=== PATIENT | male | born 1960 | race Caucasian/White ===

== ENCOUNTER → 2018-04-11 08:31 | Outpatient (CLI) | payer OTHER, SELFPAY ==
[2014-02-21 20:37] VITALS: BMI 26.3
[2018-04-11 12:51] LABS: Absolute Lymphocyte Count 1.08 X10^3/ul (0.83-4.51); Absolute Neutrophil Count 1.7 X10^3/uL (2.0-7.7); Basophil# 0.04 X10^3/uL; Basophil% 1.2 % (0-1); Eosinophils% 8.7 % (0-5); Hematocrit 48.1 % (40-54); Lymphocyte # 1.08 X10^3/ul (4.0); Lymphocyte % 31.5 % (19-41); Mean Corp Hgb Conc 33.3 g/gl (32-36); Mean Corpuscular Hgb 32.1 pg (27.0-32.0); Mean Corpuscular Volume 96.6 fL (80-94); Mean Platelet Vol. 12.2 fl (6.2-12.0); Monocyte# 0.29 X10^3/uL; Monocyte% 8.5 % (0-10); Neutrophil # 1.72 X10^3/uL (2.7-7.7); Neutrophil % 50.1 % (47-70); Platelet Count 123 K/mm3 (150-450); RBC Distribution Width SD 45.1 fl (35.1-43.9); Red Blood Count 4.98 M/mm3 (4.6-6.2); White Blood Count 3.4 K/mm3 (4.4-11.0)
[2018-04-11 12:53] LABS: POSITIVE COUNT NO; POSITIVE DIFFERENTIAL NO; POSITIVE MORPHOLOGY NO
[2018-04-11 13:31] LABS: ALB/GLOB Ratio 1.3 RATIO (0.9-2.4); AST(SGOT) 10 U/L (15-37); Alanine Aminotransfer ALT/SGPT 22 U/L (16-61); Albumin, Serum 3.9 g/dL (3.2-5.0); Alkaline Phosphatase 64 U/L (45-117); Anion Gap 10 (5-15); BUN 24 mg/dL (7-18); BUN/Creat Ratio 22.9 RATIO (10-20); Calcium,Total 8.9 mg/dL (8.5-10.1); Chloride 108 mmol/L (98-107); Cholesterol 183 mg/dL (200); Creatinine, Serum 1.05 mg/dL (0.70-1.30); EST Glomerular Filtration Rate 77 mL/min (>60); Est Glom Filt Rate - Afr Amer 93 mL/min (>60); Globulin 2.9 g/dL (2.2-4.2); Glucose 102 mg/dL (74-106); High Density Lipoprotein 52 mg/dL; PSA,Total - Annual Screen 0.81 ng/mL (0.00-4.00); Potassium 4.3 mmol/L (3.5-5.1); Protein, Total 6.8 g/dL (6.4-8.2); Sodium Level 143 mmol/L (136-145); Thyroid Stim Hormone (TSH) 0.21 uIU/mL (0.358-3.74); Triglycerides 92 mg/dL; Very Low Density Lipoprotein 18 mg/dL (5-40)
== END ==
PROVIDERS: Family Provider Family Medicine; PCP Family Medicine; Visit Provider Family Medicine
DX: Z00.01 Encounter for general adult medical examination with abnormal findings (principal); E03.9 Hypothyroidism, unspecified; E78.5 Hyperlipidemia, unspecified; Z12.5 Encounter for screening for malignant neoplasm of prostate
CPT/HCPCS: 36415; 80053; 80061; 84153; 84443; 85025; G0103

== ENCOUNTER → 2018-04-21 10:46 | Outpatient (CLI) | payer OTHER, SELFPAY ==
[2014-02-21 20:37] VITALS: BMI 26.3
[2018-04-21 12:11] LABS: Absolute Lymphocyte Count 1.26 X10^3/ul (0.83-4.51); Basophil# 0.04 X10^3/uL; Eosinophil# 0.29 X10^3/uL; Eosinophils% 7.4 % (0-5); Hematocrit 48.9 % (40-54); Hemoglobin 16.3 g/dl (13.0-16.5); Lymphocyte # 1.26 X10^3/ul (4.0); Lymphocyte % 32.3 % (19-41); Mean Corp Hgb Conc 33.3 g/gl (32-36); Mean Corpuscular Volume 96.1 fL (80-94); Mean Platelet Vol. 11.6 fl (6.2-12.0); Monocyte# 0.34 X10^3/uL; Monocyte% 8.7 % (0-10); Neutrophil # 1.96 X10^3/uL (2.7-7.7); Neutrophil % 50.3 % (47-70); POSITIVE COUNT NO; POSITIVE DIFFERENTIAL NO; POSITIVE MORPHOLOGY NO; Platelet Count 140 K/mm3 (150-450); RBC Distribution Width CV 12.8 % (11.6-14.6); Red Blood Count 5.09 M/mm3 (4.6-6.2); White Blood Count 3.9 K/mm3 (4.4-11.0)
== END ==
PROVIDERS: Family Provider Family Medicine; PCP Family Medicine; Visit Provider Family Medicine
DX: D72.819 Decreased white blood cell count, unspecified (principal); D69.6 Thrombocytopenia, unspecified
CPT/HCPCS: 36415; 85025

== ENCOUNTER → 2020-03-07 09:16 | Outpatient (CLI) | payer OTHER, SELFPAY ==
[2020-03-07 10:03] LABS: Absolute Lymphocyte Count 0.94 X10^3/uL (0.83-4.51); Absolute Neutrophil Count 1.5 X10^3/uL (2.0-7.7); Basophil# 0.04 X10^3/uL; Basophil% 1.3 % (0-1); Eosinophil# 0.17 X10^3/uL; Eosinophils% 5.7 % (0-5); Hematocrit 45.3 % (40-54); Hemoglobin 15.3 g/dL (13.0-16.5); Lymphocyte # 0.94 X10^3/ul (4.0); Lymphocyte % 31.6 % (19-41); Mean Corp Hgb Conc 33.8 g/dL (32-36); Mean Corpuscular Hgb 32.3 pg (27.0-32.0); Mean Corpuscular Volume 95.8 fL (80-94); Mean Platelet Vol. 11.2 fl (6.2-12.0); Monocyte# 0.28 X10^3/uL; Monocyte% 9.4 % (0-10); NRBC Flagged by Analyzer 0 % (0-5); Neutrophil # 1.54 X10^3/uL (2.7-7.7); Platelet Count 146 K/mm3 (150-450); RBC Distribution Width CV 12.2 % (11.6-14.6); RBC Distribution Width SD 42.6 fl (35.1-43.9); Red Blood Count 4.73 M/mm3 (4.6-6.2)
[2020-03-07 10:51] LABS: ALB/GLOB Ratio 1.3 RATIO (0.9-2.4); AST(SGOT) 11 U/L (15-37); Alanine Aminotransfer ALT/SGPT 20 U/L (16-61); Alkaline Phosphatase 64 U/L (45-117); Anion Gap 2 (5-15); BUN 25 mg/dL (7-18); Calcium,Total 8.8 mg/dL (8.5-10.1); Chloride 110 mmol/L (98-107); Cholesterol 183 mg/dL (200); Creatinine, Serum 0.96 mg/dL (0.70-1.30); EST Glomerular Filtration Rate 84 mL/min (>60); Est Glom Filt Rate - Afr Amer 102 mL/min (>60); Glucose 92 mg/dL (74-106); High Density Lipoprotein 56 mg/dL; PSA,Total - Annual Screen 0.68 ng/mL (0.00-4.00); Potassium 4.2 mmol/L (3.5-5.1); Sodium Level 141 mmol/L (136-145); Thyroid Stim Hormone (TSH) 0.04 uIU/mL (0.358-3.74); Triglycerides 66 mg/dL; Very Low Density Lipoprotein 13 mg/dL (5-40)
== END ==
PROVIDERS: PCP Family Medicine; Visit Provider Family Medicine
DX: Z00.01 Encounter for general adult medical examination with abnormal findings (principal); E03.9 Hypothyroidism, unspecified; E78.5 Hyperlipidemia, unspecified; Z12.5 Encounter for screening for malignant neoplasm of prostate
CPT/HCPCS: 36415; 80053; 80061; 84153; 84443; 85025; G0103

== ENCOUNTER 2021-04-28 07:45 | Observation (INO) | payer SELFPAY ==
--- NOTE | 2021-04-22 11:23 | EKG12_ITS ---
Test Reason : PREOP Blood Pressure : / mmHG Vent. Rate : 071 BPM Atrial Rate : 071 BPM P-R Int : 140 ms QRS Dur : 086 ms QT Int : 364 ms P-R-T Axes : 080 062 068 degrees QTc Int : 395 ms Normal sinus rhythm Normal ECG Confirmed by WEN COHN, KORIN ([id number]), subeditor KEREN DILLON ([id number]) on 04/23/2021 8:24:41 AM Referred By: WILFREDO Confirmed By:KORIN CARVER MD
[2021-04-22 12:28] LABS: Absolute Lymphocyte Count 0.95 X10^3/uL (0.83-4.51); Absolute Neutrophil Count 2.7 X10^3/uL (2.0-7.7); Basophil# 0.05 X10^3/uL; Basophil% 1.2 % (0-1); Eosinophil# 0.21 X10^3/uL; Hemoglobin 16.7 g/dL (13.0-16.5); Lymphocyte # 0.95 X10^3/ul (0.83-4.51); Lymphocyte % 22.6 % (19-41); Mean Corp Hgb Conc 34.8 g/dL (32-36); Mean Corpuscular Hgb 33.1 pg (27.0-32.0); Mean Platelet Vol. 10.9 fl (6.2-12.0); Monocyte# 0.31 X10^3/uL; Monocyte% 7.4 % (0-10); NRBC Flagged by Analyzer 0 % (0-5); Neutrophil # 2.68 X10^3/uL (2.7-7.7); Neutrophil % 63.6 % (47-70); Platelet Count 179 K/mm3 (150-450); RBC Distribution Width CV 13.4 % (11.6-14.6); RBC Distribution Width SD 46.7 fl (35.1-43.9); Red Blood Count 5.05 M/mm3 (4.6-6.2); White Blood Count 4.2 K/mm3 (4.4-11.0)
[2021-04-22 13:00] LABS: Anion Gap 4 (5-15); BUN 18 mg/dL (7-18); BUN/Creat Ratio 17.8 RATIO (10-20); Calcium,Total 9.8 mg/dL (8.5-10.1); Chloride 107 mmol/L (98-107); Creatinine, Serum 1.01 mg/dL (0.70-1.30); EST Glomerular Filtration Rate 79 mL/min (>60); Est Glom Filt Rate - Afr Amer 96 mL/min (>60); Glucose 98 mg/dL (74-106); Sodium Level 139 mmol/L (136-145)
[2021-04-22 13:14] LABS: Magnesium 2.2 mg/dL (1.6-2.6); Thyroid Stim Hormone (TSH) 0.45 uIU/mL (0.358-3.74)
[2021-04-22 17:20] LABS: HIV - WCH Non-Reactive (Nonreactive); Hepatitis B Surface Antibody Non-Reactive; Hepatitis C Antibody Non-Reactive (Nonreactive)
[2021-04-23 15:59] LABS: Hepatitis A AB, Total Negative (Negative)
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
[2021-04-28] VITALS (19 sets, daily range): BP systolic 104–126; BP diastolic 58–91; PULSE 74–104; RESP 12–18; TEMP 36.2–37.2; O2SAT 93–100; BMI 22.1
--- NOTE | 2021-04-28 | DISC_PTH ---
PATIENT: JEFF DODGE LOC: MS3 U#:[id number] AGE/SX: 60/M ROOM: [facility]305 RE04/28/[address]: Dr. Dilcia Berry DO : 1960 BED: 1 DIS: 04/29/2021 SPEC #: [id number] RECD: 04/28/21 11:00 STATUS: ALEXIA EULALIO #: [id number] HENRY: 04/28/21 00:[address]: Peter Burton DEPT: SURGICAL PATHOLOGY RECD BY: Janak Aragon ENTERED: 04/28/21 11:00 SP TYPE: DISC OTHR DR: Dr. Davy Lentz DO Tissues: Intervertebral disc, NOS Procedures: Surgery Specimen Level III HEADER OPERATION: ERAS, laminectomy L4-5 PRE-OP DIAGNOSIS: Herniated nucleus pulposus, L4-5, right TISSUE SUBMITTED: L4-5 disc MICROSCOPIC DIAGNOSIS Intervertebral disc, L4-5, discectomy: Fragments of intervertebral disc with degenerative change. AM:liliane 04/29/2021 MICROSCOPIC DESCRIPTION Slides are reviewed. GROSS DESCRIPTION Received in fixative is one container labeled with the patient's name and designated L4-5 disc. The specimen consists of multiple irregular fragments of roche-pink, indurated tissue that in aggregate measure 2.5 x 1.5 x 0.3 cm. The specimen is totally submitted in one cassette. / SJ:liliane 04/28/2021 TC:5 CPT: 54904
[2021-04-28] MEDS: Lactated Ringers 1,000 ML 15 ML IV (06:23)
[2021-04-28] MEDS: Acetaminophen 500 MG Tablet 1000 MG PO ×3 (06:24→22:39)
[2021-04-28 07:00] LABS: Bedside Glucose 97 mg/dL (70-110)
[2021-04-28] MEDS: Cefazolin 2 GM in 0.9% Normal Saline 100 ML IV (07:28)
--- NOTE | 2021-04-28 08:30 | RAD_ITS ---
STUDY: X-RAY - LUMBAR SPINE REASON FOR EXAM: Male, 60 years old. LAMINECTOMY L4-5,RIGHT TECHNIQUE: 1 view(s) of the lumbar spine was obtained. COMPARISON: None FINDINGS: Single intraoperative image was performed. The localization instrument is seen posterior to the L5-S1 level. RAD/Spine 1 View Any Level IMPRESSION: The localization instrument is seen posterior to the L5-S1 disc space level. Electronically Signed: Keven Biggs MD at 10:16 EST ,
[2021-04-28] MEDS: THROMBIN (RECOMBINANT) 20,000 UNIT VIAL 20000 UNIT TOPICAL (09:00)
--- NOTE | 2021-04-28 09:41 | PCM.OPRPT ---
Report of Operation Date of Procedure: 04/28/21 Description of Surgical Findings:: Preoperative diagnosis: Herniated disc L4-5 with severe right L5 radiculopathy Postoperative diagnosis: The same Procedure: Lumbar laminectomy discectomy L4-5 on the right CPT code 24616 Surgeon: Dr. Burton orthodontic technician assistant: Rachell Coleman NP Anesthesia: General endotracheal anesthesia administered by [facility] Estimated blood loss less than 20 cc Drains: None Complications: None Procedure: Patient was taken to the OR where he was placed under general endotracheal anesthesia Pittman catheter was inserted neuro monitoring placed their leads on the patient. After appropriate positioning with care to protect his bony prominences his genitalia the ulnar nerves of both elbows the brachial plexus bilaterally the cervical spine and facial features the back was prepped and draped in standard fashion. I then made a longitudinal incision over the patient's low back. Subcutaneous tissues were incised length of the skin incision. I opened the lumbar fascia to the right of the spinous processes elevated paravertebral muscles off of the lamina. An intraoperative x-ray was taken the demonstrated that we were at L5-S1 we simply extended the incision cephalad about three fourths of an inch and continue to elevate the paravertebral muscles off the lamina of L4 and the top of the lamina of L5. Yuliana retractor was then put in place. I then used curettes to elevate the ligamentum flavum off the underside of the lamina of L for and I also thinned the lamina with double-action rongeurs. I performed laminectomy with 45 degree Kerrison rongeurs. Leaving the ligamentum flavum intact. I then released it off the medial superior facet of L5 and released it off the top of the lamina of L5. The 45 degree Kerrison rongeurs were then used to do medial facetectomy of the superior facet of 5 and the top of the L5 lamina. This gave me good access to the epidural space the nerve was identified I retracted it medialward along with the dura and found the rather large piece of extruded fragment that had gone down below the disc space behind the body of L5. This was removed mostly in a couple of large pieces. This completely decompressed the nerve root also checked the foramen was found to be open. Note that the tear in the annulus was at the very bottom of the annulus and it was not felt that it needed to be violated by removing some of the annulus and removed more disc from within the disc space. Violating the disc space itself sometimes increases the odds that there would be a second herniation at some point later in his life. Thorough irrigation was carried out every 10 to 15 minutes in the course of the case. Good hemostasis was obtained through a bipolar cautery and thrombin-soaked Gelfoam until we had excellent hemostasis. A 2 x 3 amnionic membrane was placed directly on the dura to prevent adhesions followed by Gelfoam placed over the top of that there was no need for a drain so the drain was left out. I then closed the lumbar fascia using [id number] suture with #1 Vicryl. The subcutaneous tissues were then closed with 2-0 Vicryl in interrupted fashion and skin was approximated using skin clips sterile dressings were then applied. Patient was recovered in the OR moved to his hospital bed and taken to recovery in satisfactory condition. The end of operative summary on Kris Sim. This is Dr. Burton dictating.
[2021-04-28] MEDS: Lactated Ringers 1,000 ML 100 ML IV (13:03)
--- NOTE | 2021-04-28 16:45 | PCM.PN.HOSP ---
Subjective Subjective This is a 58-year-old male who underwent a lumbar laminectomy and discectomy of L4-5 on the right. Currently, the patient is asymptomatic. Objective Data Objective Data Vital Signs: Vital Signs Temp Pulse Resp BP Pulse Ox 36.9 C 104 H 16 118/87 H 100 04/28/21 16:34 04/28/21 16:34 04/28/21 16:34 04/28/21 16:34 04/28/21 16:34 Oxygen Flow Rate (L/min) 4 Oxygen Delivery Method Room Air Weight: 68 kg Body Mass Index (BMI) 22.1 Intake & Output: Intake and Output for Last 24 Hours 04/26/21 04/27/21 04/28/21 23:59 23:59 23:59 Intake Total 1215 / 1215 Output Total 325 / 325 Balance 890 / 890 Lab / Micro Data Result Diagrams: 04/22/21 11:37 04/22/21 11:37 Labs: Laboratory Results - last 24 hr 04/28/21 06:01: POC Glucose 97 Micro: Microbiology 04/27/21 10:00 Interface Orders SARS-CoV-2 Antigen (Rapid) - Final 04/22/21 11:37 Swab (Method) Nasal Screen MRSA/MSSA - Final Radiography Diagnostic Testing: Radiology Impression Spine X-Ray 04/28/21 08:30 IMPRESSION: The localization instrument is seen posterior to the L5-S1 disc space level. Electronically Signed: Keven Biggs MD at 10:16 EST , Physical Exam Const alert, no apparent distress and average body habitus HEENT head/scalp atraumatic, moist oral mucous membranes and oropharynx normal Head and Scalp: normocephalic Eyes PERRL Resp normal respiratory effort, no retractions, no use of accessory muscles and clear to auscultation bilaterally Cardio regular rate, regular rhythm, S1 normal heart sound and S2 normal heart sound GI normal to inspection, nondistended, normoactive bowel sounds, soft to palpation, non-tender and non-distended Extremity normal to inspection and full ROM Assessment & Plan Assessment/Plan (1) Herniated nucleus pulposus, L4-5 right: (2) COVID-19 vaccination declined: PLAN: 1. Status post laminectomy and discectomy L4-5 Management per spine surgery 2. Hypothyroidism Continue with the levothyroxine 3. VTE prophylaxis Defer to spine surgery 4. COVID-19 vaccination status: Patient is not vaccinated for COVID-19. Patient currently medically stable. 100 anticipate any acute medical issues but please contact if acute medical issues do arise. The Hospitalist service will follow peripherally. Charges/Coding Visit Charges OBSV E&M: 15421 Subsequent observation care L2
[2021-04-28] MEDS: Cefazolin 1 GM/50 ML BAG IV ×2 (16:50→22:39)
[2021-04-28] MEDS: diazePAM 5 MG Tablet PO (18:33)
[2021-04-28] MEDS: 0.9% Saline Lock 10 ML Syringe IV (22:39)
[2021-04-29 02:29] VITALS: BP 109/70; PULSE 87; RESP 18; TEMP 36.9; O2SAT 97
[2021-04-29] MEDS: Acetaminophen 500 MG Tablet 1000 MG PO ×2 (05:58→13:57)
[2021-04-29] MEDS: Levothyroxine 175 MCG Tablet PO (05:58)
[2021-04-29] MEDS: diazePAM 5 MG Tablet PO (08:26)
[2021-04-29 09:27] VITALS: BP 113/75; PULSE 83; RESP 18; TEMP 36.8; O2SAT 98
--- NOTE | 2021-04-29 10:08 | PCM.PN.HOSP ---
Subjective Subjective Patient states he is feeling well. Is any significant pain but feels best when he is moving around. States he is anxious to get home later today. No specific issues overnight. Objective Data Objective Data Vital Signs: Vital Signs Temp Pulse Resp BP Pulse Ox 98.3 F 83 18 113/75 98 04/29/21 09:27 04/29/21 09:27 04/29/21 09:27 04/29/21 09:27 04/29/21 09:27 Oxygen Flow Rate (L/min) 4 Oxygen Delivery Method Room Air Weight: 68 kg Body Mass Index (BMI) 22.1 Intake & Output: Intake and Output for Last 24 Hours 04/27/21 04/28/21 04/29/21 23:59 23:59 23:59 Intake Total 2875.50 / 2875.50 900 / 900 Output Total 1425 / 1425 300 / 300 Balance 1450.50 / 1450.50 600 / 600 Lab / Micro Data Result Diagrams: 04/22/21 11:37 04/22/21 11:37 Micro: Microbiology 04/27/21 10:00 Interface Orders SARS-CoV-2 Antigen (Rapid) - Final 04/22/21 11:37 Swab (Method) Nasal Screen MRSA/MSSA - Final Radiography Diagnostic Testing: Radiology Impression Spine X-Ray 04/28/21 08:30 IMPRESSION: The localization instrument is seen posterior to the L5-S1 disc space level. Electronically Signed: Keven Biggs MD at 10:16 EST , Physical Exam Const alert, oriented x3, no apparent distress and average body habitus Constitutional Narrative: Upper middle-aged white male sitting up in a chair at the bedside, appears comfortable and nontoxic, finishing breakfast and watching television Exam Limitations: no limitations HEENT head/scalp atraumatic Head and Scalp: normocephalic Resp normal respiratory effort, no retractions, no use of accessory muscles and clear to auscultation bilaterally Auscultation: Negative for crackles, rales, rhonchi or wheezes Cardio regular rate, regular rhythm, S1 normal heart sound, S2 normal heart sound, no murmurs, no rub, no gallops, no clicks and no JVD GI normal to inspection, nondistended, normoactive bowel sounds, soft to palpation, non-tender and non-distended Extremity no clubbing, cyanosis or edema Psych affect normal Assessment & Plan Assessment/Plan (1) Herniated nucleus pulposus, L4-5 right: PLAN: L4-L5 right HNP -Postop day 1 from L4-L5 lumbar laminectomy and discectomy on the right -Clinically doing very well -Pain management per primary service -Anticipate discharge home today later Hypothyroidism -Continue levothyroxine upon discharge DVT prophylaxis -Per primary service Patient is medically stable for discharge later today Charges/Coding Visit Charges Office Visits / Consults: 51209 OV L2 Est
--- NOTE | 2021-04-29 10:20 | CASEMGMT ---
RN CM GOVERNMENT GUARD CM to room to meet with patient for initial transition planning/care coordination assessment. RN SANTY introduced self and role at [facility]. Pt voices understanding and consents to assessment at this time. Pt sitting up in chair in room in no distress at this time. Pt is A/O at this time and answers all questions appropriately. Care providers, pharmacy, and demographics verified/updated at this time. PCP: Dr Davy Lentz Specialists: Dr Burton-essie Preferred Pharmacy: [facility] Insurance: [employer] Prescription Benefit: None Living Will/HPOA: Has both. , Lizeth, is HPOA LNOK: , Lizeth Living Arrangements: Lives w/ in one-story home w/basement w/4 steps to enter. Independent w/ADL's and IADL's. and pt share home mgmt tasks. Transportation: Pt states drives self and states no transportation concerns at this time. also drives DME: Pt was borrowing shower chair and cane prior to to surgery. Denies need for further DME HHC/SNF: No hx of either. No needs identified. Pt wishes to return home and states has no concerns with going home at time of discharge. CM to follow for any discharge planning/needs. Pt voices no concerns/needs at this time. PLAN: Home w/spousal support and discharge plans in place. Garcia PAULA RN, CM
--- NOTE | 2021-04-29 12:14 | PCM.DC ---
Discharge Instructions Follow Up Care Test Results: Test results from this visit will be discussed in further detail at your follow-up appointment, if applicable. Discharge Plan Admission Admit Date/Time: 04/28/21 07:45 Attending Provider: Dilcia Berry Primary Care Provider: Davy Lentz Consulting Providers: Fernando Quinn Discharge Orders/Prescriptions Prescriptions: No Action levothyroxine 175 MCG tablet 175 mcg PO DAILY RF: 0 Referrals / Follow Up: Davy Lentz DO [Primary Care Provider] - Disposition Disposition (needs filled in before D/C Order can be placed): Home, Self Care
--- NOTE | 2021-04-29 12:15 | PCM.DC.SUM ---
Providers Date of Admission: 04/28/21 Primary Care Physician: Dr. Davy Lentz, Consultations 04/28/21 13:01 Consult: Hospitalist Routine Consulting Provider: Fernando Quinn Reason for Consult: Medical Management EMERGENT Consult: No MD Notified: Yes Date Notified: 04/28/21 Time Notified: 16:25 Method of Notification: Text Reason For Visit: Pre-Surgical Testing Diagnosis Discharge Diagnosis (1) Herniated nucleus pulposus, L4-5 right: Status: Acute Code(s): M51.26 - Other intervertebral disc displacement, lumbar region Medications at Discharge Home Medications levothyroxine 175 mcg PO DAILY 02/21/14 Hospital Course Summary of Care Provided Hospital Course: Mr. Mejias was admitted yesterday 28 April. He underwent lumbar laminectomy L4-5 on the right side. Postoperatively he has done well. Jefe the dressing was changed incision is healing well. He reports that all his right leg pain is completely gone. Is only taking Tylenol for pain. He is ambulating easily and well. I gave him directions regarding his activities. Him and his know to take the dressing off on Tuesday and he may shower on Tuesday. The dressing is to stay off after Tuesday. Was told that he can sit for more than 30 minutes at a time at first. He already has an appointment to see me in 13 days. I answered all her questions he knows to call my office in the event that he should need me at any point. He is discharged. Is the end of discharge summary on Kris Sim. This is Dr. Burton dictating. Weight / BMI Weight Weight: 149 lb 14.629 oz Body Mass Index (BMI) 22.1 ABG / Lab / Microbiology Data Result Diagrams: 04/22/21 11:37 04/22/21 11:37 Microbiology: Microbiology 04/27/21 10:00 Interface Orders SARS-CoV-2 Antigen (Rapid) - Final 04/22/21 11:37 Swab (Method) Nasal Screen MRSA/MSSA - Final Meaningful Use Info Meaningful Use Diagnoses (Choose all that apply): None applicable Discharge Plan Admission Admit Date/Time: 04/28/21 07:45 Attending Provider: Dilcia Berry Primary Care Provider: Davy Lentz Consulting Providers: Fernando Quinn Discharge Orders/Prescriptions Prescriptions: No Action levothyroxine 175 MCG tablet 175 mcg PO DAILY RF: 0 Referrals / Follow Up: Davy Lentz DO [Primary Care Provider] - Disposition Disposition (needs filled in before D/C Order can be placed): Home, Self Care
[2021-04-29] MEDS: oxyCODONE 5 MG Tablet PO ×2 (13:57→15:11)
[2021-04-29 13:58] VITALS: BP 116/79; PULSE 78; RESP 16; TEMP 36.6; O2SAT 98
== END 2021-04-29 15:17 | disposition home or self-care (01) ==
LOC: SDC 15:20 → MS3 15:20
PROVIDERS: Anesthesiology; Admitting Provider Orthopaedic Surgery; PCP Family Medicine; Referring Provider Orthopaedic Surgery; Visit Provider Internal Medicine
PROC: (CPT 63030; principal; 2021-04-28 07:00)
DX: M51.26 Other intervertebral disc displacement, lumbar region (principal); K21.9 Gastro-esophageal reflux disease without esophagitis; E03.9 Hypothyroidism, unspecified; R00.0 Tachycardia, unspecified; Z79.890 Hormone replacement therapy
CPT/HCPCS: 63030; 36415; 72020; 80048; 82962; 83735; 84443; 85025; 86703; 86706; 86708; 86803; 87081; 87426; 88304; 93005; 96361; 96365; 96366; 97161; 99218; C9803; J7120; A4216; G0378; J2405

== ENCOUNTER → 2021-09-21 | Outpatient (CLI) | payer SELFPAY ==
--- NOTE | 2021-09-21 10:17 | MRI_ITS ---
STUDY: MRI LUMBAR SPINE WITH AND WITHOUT CONTRAST REASON FOR EXAM: Male, 61 years old. Back pain. TECHNIQUE: Standardized fat and water weighted pulse sequences were obtained in the sagittal and axial planes. 13 mL of IV Dotarem was administered for the contrast portion of the examination. COMPARISON: Crosstable lateral view of the lumbar spine 04/28/2021. FINDINGS: T11-T12 and T12-L1: (Sagittal only). Normal endplates. Normal disc height, hydration and morphology. No ventral extradural defects. Normal central canal and bilateral intervertebral neural foramina. Normal lumbar lordosis. There is no substantial scoliosis. Normal conus medullaris that terminates at the upper T12 vertebral body level. L1-2: Normal endplates. Moderate disc space height narrowing. Minimal degenerative retrolisthesis of L1 on L2. Small posterior bulging annulus. Mild degenerative facet arthropathy. Normal central canal and bilateral lateral recesses. Normal bilateral intervertebral neural foramina. L2-3: Normal endplates. Moderate disc space height narrowing. Mild asymmetric degenerative facet arthropathy. Normal central canal and bilateral lateral recesses. Normal bilateral intervertebral neural foramina. Small perineural cyst in the right intervertebral neural foramen. L3-4: Normal endplates. Moderate disc space height narrowing. Mild ventral extra dural defect due to posterior bulging annulus. Mild bilateral degenerative facet arthropathy. Moderate central canal stenosis with an AP canal diameter of 7.4 mm secondary to prominent dorsal epidural lipomatosis, developmentally short pedicles and small posterior bulging annulus. Normal bilateral lateral recesses. Normal bilateral intervertebral neural foramina. L4-5: Normal endplates. Moderate disc space height narrowing. Minimal ventral extradural defect due to tiny posterior bulging annulus. Right L4 hemilaminectomy defect. Enhancing right ventral extradural defect, enhancing right lateral extradural defect and enhancing soft tissue density behind the laminectomy site consistent with postoperative fibrosis. Normal bilateral intervertebral neural foramina. L5-S1: Normal endplates. Normal disc height, hydration and morphology. Mild asymmetric degenerative facet arthropathy. Normal central canal and bilateral lateral recesses. Normal bilateral intervertebral neural foramina. Normal visualized sacral ala. Normal visualized paraspinous soft tissue structures. Enhancing postoperative fibrosis of the right lateral extradural defect, right ventral extra dural defect behind the right hemilaminectomy site at L4-L5 disc space level. No other enhancing lesions intradurally and extradurally. MRI/Spine Lumbar W/WO Contrast IMPRESSION: 1. No MRI evidence of recurrent or new lumbar extruded disc fragment. 2. Enhancing postoperative fibrosis of the right L4-L5 ventral extra dural defect, right lateral extradural defect and behind the right L4 hemilaminectomy site. 3. Moderate central canal stenosis at L3-L4 disc space level with an AP canal diameter of 7.4 mm secondary to developmentally short pedicles, dorsal epidural lipomatosis and small posterior bulging annulus. Electronically Signed: Jono Patel MD at 16:10 EDT ,
[2021-09-21 11:01] LABS: CREATININE FINGERSTICK < 0.9 mg/dL (0.70-1.30); EGFR FINGERSTICK > 60.0000 mL/min (>60)
== END | disposition home or self-care (01) ==
PROVIDERS: PCP Family Medicine; Referring Provider Orthopaedic Surgery; Visit Provider Orthopaedic Surgery
DX: M51.26 Other intervertebral disc displacement, lumbar region (principal); Z98.890 Other specified postprocedural states
CPT/HCPCS: 72158; A9575

== ENCOUNTER → 2022-09-09 | Outpatient (CLI) | payer SELFPAY ==
[2022-09-09 12:31] LABS: Absolute Lymphocyte Count 1.03 X10^3/uL (0.83-4.51); Basophil# 0.06 X10^3/uL; Basophil% 1.3 % (0-1); Eosinophil# 0.23 X10^3/uL; Eosinophils% 4.9 % (0-5); Hematocrit 46.5 % (40-54); Hemoglobin 15.3 g/dL (13.0-16.5); Lymphocyte # 1.03 X10^3/ul (0.83-4.51); Lymphocyte % 22.1 % (19-41); Mean Corp Hgb Conc 32.9 g/dL (32-36); Mean Corpuscular Hgb 31.4 pg (27.0-32.0); Mean Corpuscular Volume 95.5 fL (80-94); Mean Platelet Vol. 11.5 fl (6.2-12.0); Monocyte# 0.38 X10^3/uL; Monocyte% 8.1 % (0-10); NRBC Flagged by Analyzer 0 % (0-5); Neutrophil # 2.95 X10^3/uL (2.7-7.7); Neutrophil % 63.2 % (47-70); Platelet Count 238 K/mm3 (150-450); RBC Distribution Width CV 12.5 % (11.6-14.6); RBC Distribution Width SD 43.3 fl (35.1-43.9); Red Blood Count 4.87 M/mm3 (4.6-6.2); White Blood Count 4.7 K/mm3 (4.4-11.0)
[2022-09-09 14:35] LABS: ALB/GLOB Ratio 1.1 RATIO (0.9-2.4); AST(SGOT) 15 U/L (15-37); Alanine Aminotransfer ALT/SGPT 21 U/L (16-61); Albumin, Serum 3.8 g/dL (3.2-5.0); Alkaline Phosphatase 98 U/L (45-117); Anion Gap 8 (5-15); BUN 23 mg/dL (7-18); BUN/Creat Ratio 19.7 RATIO (10-20); Calcium,Total 9.5 mg/dL (8.5-10.1); Chloride 109 mmol/L (98-107); Cholesterol 211 mg/dL (200); Creatinine, Serum 1.17 mg/dL (0.70-1.30); EST Glomerular Filtration Rate 67 mL/min (>60); Est Glom Filt Rate - Afr Amer 81 mL/min (>60); Globulin 3.5 g/dL (2.2-4.2); Glucose 107 mg/dL (74-106); High Density Lipoprotein 51 mg/dL; PSA,Total - Annual Screen 1.37 ng/mL (0.00-4.00); Potassium 4.7 mmol/L (3.5-5.1); Protein, Total 7.3 g/dL (6.4-8.2); Sodium Level 141 mmol/L (136-145); T4 Free Direct 1.49 ng/dL (0.76-1.46); Thyroid Stim Hormone (TSH) 0.84 uIU/mL (0.358-3.74); Triglycerides 127 mg/dL; Very Low Density Lipoprotein 25 mg/dL (5-40)
== END | disposition home or self-care (01) ==
LOC: BFHLAB 08:34
PROVIDERS: PCP Family Medicine; Referring Provider Family Medicine; Visit Provider Family Medicine
DX: Z00.00 Encounter for general adult medical examination without abnormal findings (principal); Z12.5 Encounter for screening for malignant neoplasm of prostate; E03.9 Hypothyroidism, unspecified
CPT/HCPCS: 36415; 80053; 80061; 84153; 84439; 84443; 85025; G0103

== ENCOUNTER → 2023-08-29 | Outpatient (CLI) | payer MEDICARE, BC, SELFPAY ==
[2023-08-29 12:08] LABS: Absolute Lymphocyte Count 1.29 X10^3/uL (0.83-4.51); Absolute Neutrophil Count 2.7 X10^3/uL (2.0-7.7); Basophil# 0.07 X10^3/uL; Basophil% 1.4 % (0-1); Eosinophils% 8.2 % (0-5); Hematocrit 48.6 % (40-54); Lymphocyte # 1.29 X10^3/ul (0.83-4.51); Lymphocyte % 26.4 % (19-41); Mean Corp Hgb Conc 32.9 g/dL (32-36); Mean Corpuscular Hgb 31.6 pg (27.0-32.0); Mean Corpuscular Volume 95.9 fL (80-94); Mean Platelet Vol. 11.7 fl (6.2-12.0); Monocyte# 0.42 X10^3/uL; Monocyte% 8.6 % (0-10); NRBC Flagged by Analyzer 0 % (0-5); Neutrophil # 2.69 X10^3/uL (2.7-7.7); Platelet Count 149 K/mm3 (150-450); RBC Distribution Width CV 12.9 % (11.6-14.6); RBC Distribution Width SD 45.5 fl (35.1-43.9); Red Blood Count 5.07 M/mm3 (4.6-6.2); White Blood Count 4.9 K/mm3 (4.4-11.0)
[2023-08-29 12:36] LABS: ALB/GLOB Ratio 1.2 RATIO (0.9-2.4); AST(SGOT) 22 U/L (15-37); Alanine Aminotransfer ALT/SGPT 23 U/L (16-61); Albumin, Serum 3.9 g/dL (3.2-5.0); Alkaline Phosphatase 73 U/L (45-117); Anion Gap 4 (5-15); BUN 31 mg/dL (7-18); BUN/Creat Ratio 29.5 RATIO (10-20); Calcium,Total 9.4 mg/dL (8.5-10.1); Chloride 110 mmol/L (98-107); Cholesterol 232 mg/dL (200); Creatinine, Serum 1.05 mg/dL (0.70-1.30); EST Glomerular Filtration Rate 75 mL/min (>60); Est Glom Filt Rate - Afr Amer 91 mL/min (>60); Globulin 3.2 g/dL (2.2-4.2); Glucose 108 mg/dL (74-106); High Density Lipoprotein 57 mg/dL; Potassium 4.9 mmol/L (3.5-5.1); Protein, Total 7.1 g/dL (6.4-8.2); Sodium Level 140 mmol/L (136-145); T4 Free Direct 1.83 ng/dL (0.76-1.46); Thyroid Stim Hormone (TSH) 0.05 uIU/mL (0.358-3.74); Triglycerides 64 mg/dL; Very Low Density Lipoprotein 13 mg/dL (5-40)
== END | disposition home or self-care (01) ==
LOC: BFHLAB 09:26
PROVIDERS: PCP Family Medicine; Referring Provider Family Medicine; Visit Provider Family Medicine
DX: Z01.810 Encounter for preprocedural cardiovascular examination (principal); D72.819 Decreased white blood cell count, unspecified; D69.6 Thrombocytopenia, unspecified; E03.9 Hypothyroidism, unspecified; E78.5 Hyperlipidemia, unspecified
CPT/HCPCS: 36415; 80053; 80061; 84439; 84443; 85025

== ENCOUNTER → 2024-03-06 | Outpatient (CLI) | payer MEDICARE, BC, SELFPAY ==
[2024-03-06 13:04] LABS: T4 Free Direct 1.43 ng/dL (0.76-1.46)
== END | disposition home or self-care (01) ==
LOC: BFHLAB 09:54
PROVIDERS: PCP Family Medicine; Referring Provider Family Medicine; Visit Provider Family Medicine
DX: E03.9 Hypothyroidism, unspecified (principal)
CPT/HCPCS: 36415; 84439; 84443